=== PATIENT | female | born 1995 | race Caucasian/White ===

== ENCOUNTER 2025-02-01 13:02 | Emergency (ER) | payer BC, SELFPAY ==
[2025-02-01 13:10] VITALS: BP 137/85; PULSE 117; RESP 20; TEMP 36.4; O2SAT 98
[2025-02-01 13:47] VITALS: BP 153/83; PULSE 111; RESP 20; O2SAT 97
--- NOTE | 2025-02-01 14:10 | ED.GENADULT ---
HPI - General Adult General Chief complaint: Nausea/Vomiting/Diarrhea Stated complaint: OZEMPIC RELATED N/V SENT IN FOR IVF Time Seen by Provider: 02/01/25 13:51 History of Present Illness HPI narrative: 30-year-old female present to the emergency department for evaluation for increased nausea vomiting abdominal cramping and hyperglycemia. Patient is a type 1 diabetic and does insulin injections. Patient does have a Dexcom and her blood sugars are running in the 300s range. Patient had previously been on was then back but had to stop due to insurance issues, patient restarted the Ozempic on and restarted at the full dose that she had been taking. Patient reports uncontrolled nausea, patient has been taking Zofran with no significant improvement. Patient describes abdominal cramping. She states she has been positive for ketones. Related Data Allergies Allergy/AdvReac Type Severity Reaction Status Date / Time adhesive tape AdvReac Rash Verified 02/01/25 13:47 Review of Systems Review of Systems: All systems reviewed & are unremarkable except as noted in HPI and below Exam Narrative: APPEARANCE: Ill-appearing on arrival HEAD: normocephalic, atraumatic. EYES: PERRLA/EOMI, conjunctivae clear. NOSE: Normal no drainage EARS:TMS clear with good light reflex. THROAT: Pharynx clear, no exudate. NECK: Supple. No adenopathy, no masses. RESPIRATORY: Airway patent, respirations nonlabored. Clear to auscultation bilaterally, no rales, rhonchi, wheezing. CARDIOVASCULAR: Regular rate and rhythm without murmurs rubs or gallops. ABDOMINAL: Soft, nontender, nondistended, normal bowel sounds MUSCULOSKELETAL: Moves all extremities. Strength/ROM intact, No edema, No calf tenderness. NEURO: Alert. Cranial nerves II through XII intact. Good gait. Good coordination SKIN: Warm, dry. Normal Color Course Vital Signs Vital signs: Vital Signs Temperature 97.6 F 02/01/25 13:10 Pulse Rate 117 H 02/01/25 13:10 Respiratory Rate 20 02/01/25 13:10 Blood Pressure 137/85 02/01/25 13:10 Pulse Oximetry 98 02/01/25 13:10 Oxygen Delivery Room Air 02/01/25 13:10 Temperature 97.6 F 02/01/25 13:10 Pulse Rate 95 02/01/25 17:30 Respiratory Rate 18 08/09/25 17:30 Blood Pressure 134/74 02/01/25 17:30 Pulse Oximetry 100 02/01/25 17:30 Oxygen Delivery Room Air 02/01/25 13:47 Medical Decision Making MDM Narrative Medical decision making narrative: 30-year-old female history of type 1 diabetes presenting the emergency department for evaluation for nausea vomiting. Patient is afebrile but does have a leukocytosis 17.9 hemoglobin 15.4. Patient's initial anion gap was 16 improved to 11 with IV rehydration. Patient's initial beta hydroxybutyrate was 2.31 and this improved to 1.06 after 2.7 L of lactated Ringer's and 4 units of IV insulin. Patient is now tolerating p.o.. Patient's urine was positive for ketones but negative for underlying urinary tract infection. On re-evaluation patient states she does feel significantly improved patient does appear to be clinically improved. Patient was offered admission for improving DKA. Patient strongly prefers to be discharged home. Patient does have Zofran at home and she will be provided additional Reglan. Patient was treated with IV Reglan emergency department and this did seem to help her symptoms. Patient was advised to stick with a clear liquid diet for the next few days. Patient family were also educated on the importance of return to the emergency department if the patient has any worsening symptoms. Patient will have close follow-up with her primary care physician. All questions concerns were addressed. Critical Care Procedure Note Authorized and Performed by: Farhad Almanza Total critical care time: Approximately 36 minutes Due to a high probability of clinically significant, life threatening deterioration, the patient required my highest level of preparedness to intervene emergently and I personally spent this critical care time directly and personally managing the patient. This critical care time included obtaining a history; examining the patient; pulse oximetry; ordering and review of studies; arranging urgent treatment with development of a management plan; evaluation of patient's response to treatment; frequent reassessment; and, discussions with other providers. This critical care time was performed to assess and manage the high probability of imminent, life-threatening deterioration that could result in multi-organ failure. It was exclusive of separately billable procedures and treating other patients and teaching time. Please see MDM section and the rest of the note for further information on patient assessment and treatment. Differential Diagnosis Differential Diagnosis: Adverse medication reaction, gastroenteritis, gastroparesis, DKA Vital Signs Vital Signs: Vital Signs Temperature 97.6 F 02/01/25 13:10 Pulse Rate 117 H 02/01/25 13:10 Respiratory Rate 20 02/01/25 13:10 Blood Pressure 137/85 02/01/25 13:10 Pulse Oximetry 98 02/01/25 13:10 Oxygen Delivery Room Air 02/01/25 13:10 Temperature 97.6 F 02/01/25 13:10 Pulse Rate 95 02/01/25 17:30 Respiratory Rate 18 02/01/25 17:30 Blood Pressure 134/74 02/01/25 17:30 Pulse Oximetry 100 02/01/25 17:30 Oxygen Delivery Room Air 02/01/25 13:47 Lab Data Lab results reviewed: Yes I reviewed the patient's lab results. 02/01/25 14:24 02/01/25 16:34 Labs: Lab Results 02/01/25 02/01/25 02/01/25 Range/Units 14:24 14:25 14:28 WBC 17.9 H (4.5-10.0) K/mm3 RBC 5.19 (4.2-5.4) M/mm3 Hgb 15.4 H (12.0-15.0) g/dL Hct 45.4 (37.0-47.0) % MCV 87.5 (80-100) fl MCH 29.7 (26-34) pg MCHC 33.9 (32-36) g/dl RDW 12.7 (11.5-14.5) % Plt Count 338 (150-375) k/mm3 MPV 10.0 (7.4-10.4) fl Immature Gran % (Auto) 0.6 H (0-0.5) % Neut % (Auto) 88.1 H (45.5-73.1) % Lymph % (Auto) 6.9 L (18.3-44.2) % [place] % (Auto) 4.1 (2.6-8.5) % Eos % (Auto) 0.1 (0-4.4) % Baso % (Auto) 0.2 (0.2-1.2) % Lymph # (Auto) 1.24 (0.9-3.2) K/mm3 [place] # (Auto) 0.7 H (0.1-0.6) K/mm3 Eos # (Auto) 0.0 (0-0.3) K/mm3 Baso # (Auto) 0.0 (0.0-0.1) K/mm3 Abs Immat Gran (auto) 0.10 H (0.00-0.031) K/mm3 Absolute Neuts (auto) 15.8 H (1.3-6.7) K/mm3 Absolute Nucleated RBC 0.000 (0.0-0.012) K/mm3 Nucleated RBC % 0.0 (0.0-0.2) % Sodium 136 L (137-145) mmol/L Potassium 4.4 (3.4-5.0) mmol/L Chloride 102 (98-107) mmol/L Carbon Dioxide 18 L (22-30) mmol/L Anion Gap 16 H (4-12) mmol/L BUN 16 (7-17) mg/dL Creatinine 0.77 (0.7-1.0) mg/dL Estim Creat Clear Calc 92 ml/min Estimated GFR > 60 (59 - ) Glucose 272 H (65-110) mg/dL POC Capillary Glucose (65-105) mg/dl Lactic Acid 1.5 (0.7-2.0) mmol/L Calcium 9.8 (8.4-10.2) mg/dL Total Bilirubin 1.2 (0.2-1.3) mg/dL AST 30 (14-36) U/L ALT 28 (6-35) U/L Alkaline Phosphatase 90 (38-126) U/L Total Protein 9.6 H (6.3-8.2) g/dL Albumin 5.0 (3.5-5.1) g/dL Beta-Hydroxybutyrate/Acetoacetate 2.31 H (0.02-0.27) mmol/L Urine Color Yellow (Yellow) Urine Appearance Clear (Clear) Urine pH 5.5 (5.0-9.0) Ur Specific [place] 1.035 (1.001-1.035) Urine Protein 1+ H (Negative) mg/dL Urine Glucose (UA) 3+ H (Negative) mg/dL Urine Ketones 4+ H (Negative) mg/dL Ur Blood (Man) Negative (Negative) Urine Nitrate Negative (Negative) Urine Bilirubin Negative (Negative) Urine Urobilinogen 0.2 (<2.0) mg/dL Add Ur Microanalysis Reviewed Leukocyte Esterase Rfl Negative (Negative) ANDRIA/UL Urine RBC 0-2 (0-2) /hpf Urine WBC 0-5 (0-3) /hpf Ur Squamous Epith Cells None seen (Few) /hpf Urine Bacteria None seen /hpf Urine Casts 6-10 POC Urine HCG, Qual Negative (Negative) 02/01/25 02/01/25 Range/Units 16:11 16:34 WBC (4.5-10.0) K/mm3 RBC (4.2-5.4) M/mm3 Hgb (12.0-15.0) g/dL Hct (37.0-47.0) % MCV (80-100) fl MCH (26-34) pg MCHC (32-36) g/dl RDW (11.5-14.5) % Plt Count (150-375) k/mm3 MPV (7.4-10.4) fl Immature Gran % (Auto) (0-0.5) % Neut % (Auto) (45.5-73.1) % Lymph % (Auto) (18.3-44.2) % [place] % (Auto) (2.6-8.5) % Eos % (Auto) (0-4.4) % Baso % (Auto) (0.2-1.2) % Lymph # (Auto) (0.9-3.2) K/mm3 [place] # (Auto) (0.1-0.6) K/mm3 Eos # (Auto) (0-0.3) K/mm3 Baso # (Auto) (0.0-0.1) K/mm3 Abs Immat Gran (auto) (0.00-0.031) K/mm3 Absolute Neuts (auto) (1.3-6.7) K/mm3 Absolute Nucleated RBC (0.0-0.012) K/mm3 Nucleated RBC % (0.0-0.2) % Sodium 135 L (137-145) mmol/L Potassium 4.1 (3.4-5.0) mmol/L Chloride 103 (98-107) mmol/L Carbon Dioxide 21 L (22-30) mmol/L Anion Gap 11 (4-12) mmol/L BUN 14 (7-17) mg/dL Creatinine 0.75 (0.7-1.0) mg/dL Estim Creat Clear Calc 94 ml/min Estimated GFR > 60 (59 - ) Glucose 204 H (65-110) mg/dL POC Capillary Glucose 189 H (65-105) mg/dl Lactic Acid (0.7-2.0) mmol/L Calcium 9.3 (8.4-10.2) mg/dL Total Bilirubin (0.2-1.3) mg/dL AST (14-36) U/L ALT (6-35) U/L Alkaline Phosphatase (38-126) U/L Total Protein (6.3-8.2) g/dL Albumin (3.5-5.1) g/dL Beta-Hydroxybutyrate/Acetoacetate 1.06 H (0.02-0.27) mmol/L Urine Color (Yellow) Urine Appearance (Clear) Urine pH (5.0-9.0) Ur Specific [place] (1.001-1.035) Urine Protein (Negative) mg/dL Urine Glucose (UA) (Negative) mg/dL Urine Ketones (Negative) mg/dL Ur Blood (Man) (Negative) Urine Nitrate (Negative) Urine Bilirubin (Negative) Urine Urobilinogen (<2.0) mg/dL Add Ur Microanalysis Leukocyte Esterase Rfl (Negative) ANDRIA/UL Urine RBC (0-2) /hpf Urine WBC (0-3) /hpf Ur Squamous Epith Cells (Few) /hpf Urine Bacteria /hpf Urine Casts POC Urine HCG, Qual (Negative) Critical Care Time Critical Care Time Critical Care Time: Yes Total Critical Care Time: 36 Discharge Plan Discharge Clinical Impression: Nausea & vomiting, Adverse drug reaction Patient Disposition: Home Condition: Stable Instructions: Antibiotic Form, Clear Liquid Diet (ED), Acute Nausea and Vomiting (ED) Additional Instructions: You were offered admission for further treatment of your possible DKA and you preferred to be discharged home. I do recommend Zofran for nausea control and Reglan for additional nausea control. Follow a clear liquid diet for the next few days until nausea and vomiting resolves. Have close follow-up with your primary care physician. If you have any worsening symptoms then please call or return to the emergency department. Patient Language: Kenyan Prescriptions: New metoclopramide HCl [Reglan] 10 mg tablet 10 mg PO Q6H PRN (Reason: nausea and vomiting) Qty: 14 0RF Follow-up/Referrals: Jarett,Lavon Eubanks MD [Primary Care Provider] -
--- OUTSIDE RECORDS SUMMARY | 2025-02-01 14:18 | XMS_ITS | Clinical Summary ---
Author Organization [facility] Address [address] [place] [address] Care Team Providers Care Tetryl Boiling Tub Operator Name Role Phone Julio Ferreira Primary Care Provider [phone] Allergies Active Allergy Reactions Criticality Noted Date Comments Adhesive Itching,Rash,Redness Medium 02/10/2021 Medications glucagon HCL (Glucagon, HCl, Emergency Kit) 1 mg recon soln Inject 1 pen as directed as directed Only if bs drops to low 1 each 1 0 Active ibuprofen (ADVIL,MOTRIN) 800 mg tablet Take 1 tablet (800 mg total) by mouth 3 (three) times a day as needed for pain (pain) 270 tablet 1 0 Active insulin lispro (HumaLOG, ADMELOG) 100 unit/mL pen for injection INJECT UP TO 60 UNITS UNDER THE SKIN DAILY, OR 2 UNITS PER 15 CARBS, 6 UNITS/MEALS, Normal 135 mL 4 3 Active blood-glucose sensor (Dexcom G6 Sensor) deviceIndications:T ype 1 diabetes mellitus without complication (HCC) Use 1 every 10 days 9 each 3 3 Active blood-glucose transmitter (Dexcom G6 Transmitter) deviceIndications:T ype 1 diabetes mellitus without complication (HCC) Use 1 every 90 days 1 each 3 3 Active semaglutide (OZEMPIC) 2 mg/dose (8 mg/3 mL) pen injector injection Inject 2 mg under the skin every 7 days 3 mL 3 Active ondansetron ODT (ZOFRAN-ODT) 4 mg disintegrating tabletIndications:N ausea Take 1 tablet (4 mg total) by mouth every 8 (eight) hours as needed for nausea or vomiting 20 tablet 1 3 Active LORazepam (ATIVAN) 0.5 mg tabletIndications:A nxiety Take 1 tablet (0.5 mg total) by mouth 2 (two) times a day as needed for anxiety 30 tablet 3 Active insulin glargine (TOUJEO) 300 unit/mL (1.5 mL) pen for injection Inject 30 Units under the skin nightly 15 mL 1 3 Active Active Problems Problem Noted Date Diagnosed Date Anxiety 05/22/2023 Assessment & Plan (05/22/2023 10:44 PM CAUSTIC LIQUOR MAKER): Chronic Stable and well controlled Continue lorazepam prn 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 -she has had really good improvement with the recommendations. Will continue with soluble fiber supplementation daily. -when in initiate therapy with omeprazole 20 mg daily. -will continue with Levsin on a p.r.n. basis. -no further episodes of rectal bleeding. Will continue monitor. -also recommend, -ROOM TEMPERATURE BEVERAGES. -Maintain good hydration. With approximately 64 oz of water a day -AVOID RAW VEGETABLES. EAT COOKED VEGETABLES. -drink coconut water as one of the preferred beverages. -consider use of yogurt, which is a good probiotic. -consider use of honey with lemon, pati if possible. -Use benefibre, or fibrecon if methylcellulose not available or cannot be tolerated. -MINDFULLNESS WITH 20MIN FOR TWICE A DAY. -30 minutes of low intensity walking every day. -discussed intermittent fasting Assessment & Plan (04/26/2021 10:22 AM CDT): -a diagnosis of irritable bowel syndrome with diarrhea?+ blood in stool + abdominal pain -however IBS is a diagnosis of exclusion. She has not had previous stool studies. Will do stool studies including fecal leukocytes, ova and parasite and stool culture, fecal calprotectin for further evaluation. Will also obtain ESR CRP and CBC. Note that her CMP, TSH are within normal limits. She has also been tested for celiac and that was noted to be negative. -will also schedule her for a colonoscopy for further evaluation with ileal intubation. -also recommend, -ROOM TEMPERATURE BEVERAGES. -Maintain good hydration. With approximately 64 oz of water a day -AVOID RAW VEGETABLES. EAT COOKED VEGETABLES. -drink coconut water as one of the preferred beverages. -consider use of yogurt, which is a good probiotic. -consider use of honey with lemon, pati if possible. -Use benefibre, or fibrecon if methylcellulose not available or cannot be tolerated. -MINDFULLNESS WITH 20MIN FOR TWICE A DAY. -30 minutes of low intensity walking every day. -discussed intermittent fasting Blood in stool 04/26/2021 Overview (04/26/2021): Added automatically from request for surgery [id number] Abdominal cramping 04/26/2021 Assessment & Plan (04/26/2021 10:23 AM CDT): -longstanding symptom. Will give Levsin to be used on a regular basis and then p.r.n. for abdominal pain -will schedule for an upper endoscopy further evaluation Mixed hyperlipidemia 01/13/2020 Overview (01/13/2020): TC and LDL have been too high. I will recheck, consider a statin. Type 1 diabetes mellitus without complication Assessment & Plan (05/22/2023 10:43 PM CAUSTIC LIQUOR MAKER): Chronic stable and improving but not at goal Continue ozempic Monitor constipation nausea and abdominal pain Monitor for hypoglycemic events. Continue current insulin regimen Assessment & Plan (06/30/2020 6:43 PM CAUSTIC LIQUOR MAKER): Glucose control is improving greatly!! Overall, much more stable pattern. You are doing a great job covering meals during the day. It is not clear why your nighttime glucoses are so variable, and often so high. Rather than increasing insulin doses, I strongly recommend that you focus on getting more steps in and moving around more in the evening after dinner. Avoid eating after dinner. Continue use of Dexcom G6 and MDI. Assessment & Plan (01/13/2020 10:32 AM CDT): Glucose control appears to be problematic, significant hyperglycemia and glucose fluctuation, which is typical of over-eating and poorly planned eating. My recommendations are: - Continue use of Dexcom G6, try to be more consistent with use if possible - Continue current insulin doses, but add carbs/correction for heavy meals, snacks - Check A1c - Substitute Ozempic for Victoza Assessment & Plan (07/22/2019 8:58 PM CAUSTIC LIQUOR MAKER): Diabetes control is improving. Target A1c is <7.0%. She has benefited from addition of dexcom G6. Has already lost some weight with initiation on Victoza. Subjective symptoms of hypoglycemia not reflective of sensor readings which did not identify any lows. - increase Victoza to 1.8mg weekly - encouraged patient to self down-titrate insulin in case of low BGs Assessment & Plan (01/30/2018 9:46 PM CDT): Diabetes control is improving with A1c of 7.6%. Target A1c is <7.0%. She has benefited from addition of dexcom G5 and is excited to transition to G6 with little to no fingersticks. She is having hyperglycemia overnight when she eats a late dinner and has moved dinner to earlier this last week, resulting in much less overnight hyperglycemia. She is also watching her diet and eating low carb meals. Continue current insulin doses. We discussed giving 2-3 units of insulin for very low carb meals. Will also start victoza and uptitrate to 1.8 mg daily depending on GI tolerance. Obesity due to excess calories with serious mike rbidity 01/30/2018 Assessment & Plan (06/30/2020 6:45 PM CAUSTIC LIQUOR MAKER): Obesity at this age is concerning. Keep working on lower calories and more exercise. Find the groove where you are losing 1 - 2# per week. If unable to maintain this, I am happy to consider bariatric surgery referral. This is a potential lifetime problem. Assessment & Plan (01/13/2020 10:34 AM CDT): Please focus efforts on the following: - Get 8 hours of sleep nightly - Manage stress - Planned food intake, count calories, plan meals, etc - Add exercise, starting low and working up. Assessment & Plan (01/30/2018 9:39 PM CDT): Obesity is worsening with several pound weight gain since last visit. Encouraged her to continue with exercise and diet modification with portion control. Benign hypertension 01/30/2018 Assessment & Plan (01/13/2020 10:34 AM CDT): Your reported BP is OK, please keep checking and let me know if you see values >130/80. Assessment & Plan (01/30/2018 9:47 PM CDT): BP improved this visit. Will continue to monitor. Vitamin D deficiency 08/16/2017 Resolved Problems Problem Noted Date Diagnosed Date Resolved Date Type 1 diabetes mellitus with hyperglycemia 09/01/2015 08/20/2019 Immunizations Immunization Administration Dates Next Due Influenza, Unspecified 02/25/2020(Deferred: Gloria ent decision) TaDaweb (J&J) SARS-CoV-2 Vaccination 09/01/2020 Surgical History Surgery Date Site/Laterality Comments TONSILLECTOMY Tonsillectomy - 2000 (Added by TW Conv) COLONOSCOPY 05/06/2021 IBS UPPER GASTROINTESTINAL ENDOSCOPY 05/06/2021 Medical History Medical History Date Comments Personal history of urinary infection History of urinary tract infection - (Added by TW Conv) Type 1 diabetes (HCC) Hypertension Obesity Family History Medical History Relation Name Comments Hypertension Father Hypertension - (Added by TW Conv) Heart disease Maternal Grandfather Heart Disease - Relation: Grandfather (Added by TW Conv) Hypertension Mother Hypertension - (Added by TW Conv) Diabetes type II Other 1 Type 2 Diab etes Mellitus - (Added by TW Conv) Cancer Other 2 Cancer - Relati on: Grandmother (Added by TW Conv) Breast cancer Neg Hx Ovarian cancer Neg Hx Relation Name Status Comments Father Maternal Grandfather Mother Other 1 Other 2 Social History Tobacco Use Types Packs/Day Years Used Date Smoking Tobacco: Never Smokeless Tobacco: Never Tobacco Cessation:Counseling Given: Not Answered Alcohol Use Standard Drinks/Week Comments Not Currently 0 (1 standard drink = 0.6 oz pur e alcohol) AUDIT-C Answer Date Recorded Q1: How often do you have a drink containing alcohol? Never 05/16/2023 Q2: How many drinks containi ng alcohol do you have on a typical day when you are drinking? Patient does not drink Q3: How often do you have si x or more drinks on one occasion? Never 05/16/2023 PHQ-2 Answer Date Recorded PHQ-2 Total Score (If total score is 3 or more points, staff should administer the PHQ-9) 0 06/02/2021 Personal Safety Answer Date Recorded Getting School Help Needed Not on file 06/07 Comments No Sex and Gender Information Value Date Recorded Sex Assigned at Not on file Legal Sex Female 10:50 PM CAUSTIC LIQUOR MAKER Gender Identity Not on file Sexual Orientation Straight 01/12/2020 7: 12 AM CDT Obstetrics History Para Term AB IAB SAB Ectopic Multiple Livin g Live Births 0 0 0 0 0 0 0 0 0 0 0 Last Filed Vital Signs Vital Sign Reading Time Taken Comments Blood Pressure 106/70 05/16/2023 3:24 PM CAUSTIC LIQUOR MAKER Pulse 88 05/16/2023 3:24 PM CAUSTIC LIQUOR MAKER Temperature 36.1 C (96.9 F) 05/16/2023 3:24 PM CAUSTIC LIQUOR MAKER Respiratory Rate 18 05/16/2023 3:24 PM CAUSTIC LIQUOR MAKER Oxygen Saturation 98% 05/16/2023 3:24 PM CAUSTIC LIQUOR MAKER Inhaled Oxygen Concentration - - Weight 78.7 kg (173 lb 9.6 oz) 05/16/2023 3:24 P M CAUSTIC LIQUOR MAKER Height 152.4 cm (5') 05/16/2023 3:24 PM CAUSTIC LIQUOR MAKER Body Mass Index 33.9 05/16/2023 3:24 PM CAUSTIC LIQUOR MAKER Plan of Treatment Health Maintenance Due Date Last Done Comments Cervical Cancer Screening 1994 Foot Exam 1994 Hepatitis C Screening 1994 DTaP/Tdap/Td Vaccine (1 - Tdap) 2005 Hepatitis B Screening 01/19/2012 Pneumococcal vaccine <65 (1 of 2 - PCV) 2013 Albumin Creatinine Ratio, Urine 07/22/2020 0 TSH Level 07/22/2020 07/22/2019, 08/11/2017 HPV Vaccines (1 - 3-dose SCD M series) 2021 Lipid Panel 01/23/2021 01/24/2020, 06/27, 08/11/2017 eGFR 01/23/2021 01/24/2020 Regular Well Visit/Exam 18-64 07/09/2021 07/09/2020 Depression Screening 06/02/2022 06/02/2021, 04/26/2021, 09/07/2020 Hemoglobin A1C 06/03/2023 12/02/2022, 10/2020, 01/24/2020, Additional history exists Covid-19 Vaccine (3 - 2023-2 5 season) 2024 07/09/2021, 09/01/2020 Dilated Eye Exam 04/06/2024 04/06/2023, 10/12/2021 Influenza Vaccine (#1) 2025 Varicella Vaccines Discontinued Procedures Procedure Name Priority Date/Time Associated Diagnosis Comments DIABETIC EYE EXAM Routine 04/06/2023 HEMOGLOBIN A1C Routine 12/02/2022 7:02 AM CDT Type 1 diabetes mellitus without complication (HCC) COMPREHENSIVE METABOLIC PANEL Routine 01/24/2020 3:04 PM CDT Type 1 diabetes mellitus without complication (HCC) LIPID PANEL Routine 01/24/2020 3:04 PM CDT Type 1 diabetes mellitus without complication (HCC) ALBUMIN CREATININE RATIO, URINE Routine 07/22/2019 11:36 AM CAUSTIC LIQUOR MAKER Type 1 diabetes mellitus without complication (HCC) TSH Routine 07/22/2019 11:36 AM CAUSTIC LIQUOR MAKER Type 1 diabetes mellitus without complication (HCC) from Last 3 Months or Most Recently Relevant to Health Maintenance Results * Diabetic Eye Exam (04/06/2023) Historical Provider MD HEALTH MAINTENANCE Final Result * (ABNORMAL) Hemoglobin A1c (12/02/2022 7:02 AM CDT) Hgb A1C 7.9(H) <5.7 % of total Hgb [facility] Comment: For someone without known diabetes, a hemoglobin A1c value of 6.5% or greater indicates that they may have diabetes and this should be confirmed with a follow-up test. For someone with known diabetes, a value <7% indicates that their diabetes is well controlled and a value greater than or equal to 7% indicates suboptimal control. A1c targets should be individualized based on duration of diabetes, age, comorbid conditions, and other considerations. Currently, no consensus exists regarding use of hemoglobin A1c for diagnosis of diabetes for children. Blood 12/02/2022 7:02 AM CDT 12/02/2022 7:03 AM CDT Brooklyn MCGINNIS LAB BLOOD ORDERABLES Fi nal Result [facility] [address] [place] [address] * (ABNORMAL) Lipid panel (01/24/2020 3:04 PM CDT) Cholesterol 189 100 - 199 mg/dL [facility] 01 Triglycerides 166(H) 0 - 149 mg/dL [facility] - 01 HDL Cholesterol 43 >39 mg/dL [facility] 01 VLDL 33 5 - 40 mg/dL [facility] - 01 LDL, calculated 113(H) 0 - 99 mg/dL [facility] - 01 Blood specimen (specimen) 01/24/2020 3:04 PM CDT 01/24/2020 Narrative [facility] - 01/25/2020 7:08 AM CDT Performed at: [address] [place] [id number] Screen Print[employer] Stencil Preparer: Brent Moon PhD, Phone: [phone] us Nadege Pendleton MD LAB BLOOD ORDERABLES Final Re sult [facility] * (ABNORMAL) Comprehensive metabolic panel (01/24/2020 3:04 PM CDT) Pathologist [facility] [place] Glucose 114(H) 65 - 99 mg/dL [facility] - 01 BUN 10 6 - 20 mg/dL [facility] - 01 Creatinine, Serum 0.92 0.57 - 1.00 mg/dL [facility] - 01 eGFR If NonAfricn Am 86 >59 mL/min/1.7 3 [facility] - 01 eGFR If Africn Am 99 >59 mL/min/1.7 3 [facility] - 01 BUN/creat ratio 11 9 - 23 [facility] - 01 Sodium 140 134 - 144 mmol/L [facility] - 01 Potassium, sr 4.7 3.5 - 5.2 mmol/L [facility] - 01 Chloride 100 96 - 106 mmol/L [facility] - 01 CO2 26 20 - 29 mmol/L [facility] - 01 Calcium 9.9 8.7 - 10.2 mg/dL [facility] - 01 Protein, sr 7.9 6.0 - 8.5 g/dL [facility] - 01 Albumin 4.6 3.9 - 5.0 g/dL [facility] - 01 Globulin, Total 3.3 1.5 - 4.5 g/dL [facility] - 01 A/G Ratio 1.4 1.2 - 2.2 [facility] - 01 Bilirubin, Total 0.3 0.0 - 1.2 mg/dL [facility] - 01 Alk phos 100 39 - 117 IU/L [facility] - 01 AST 16 0 - 40 IU/L [facility] - 01 ALT 15 0 - 32 IU/L [facility] - 01 Blood specimen (specimen) 01/24/2020 3:04 PM CDT 01/24/2020 Narrative [facility] - 01/25/2020 7:08 AM CDT Performed at: [address] [id number] Screen Print[employer] Stencil Preparer: Brent Moon PhD, Phone: [phone] Nadege Pendleton MD LAB BLOOD ORDERABLES Final Re sult Performing Organization Address [facility] de Phone Number [facility] - 01 * Albumin Creatinine Ratio, Urine (07/22/2019 11:36 AM CAUSTIC LIQUOR MAKER) Microalb, Ur <7.0 0.0 - 22.9 mg/L [facility] Comment:Repeated and Verifie d Random Urine Creatinine 129.2 mg/dL [facility] Microalb/Creat Ratio <5.4 0.0 - 29.9 mg/g [facility] Urine 07/22/2019 11:3 6 AM CAUSTIC LIQUOR MAKER 07/22/2019 12:10 PM CAUSTIC LIQUOR MAKER Nadege Pendleton MD LAB URINE ORDERABLES Final Re sult Performing Organization Address [facility] de Phone Number [facility] * TSH (07/22/2019 11:36 AM CAUSTIC LIQUOR MAKER) TSH (Thyrotropin) 1.89 0.27 - 4.20 uIU/mL [facility] Blood specimen (specimen) 07/22/2019 11:36 AM CAUSTIC LIQUOR MAKER 07/22/2019 12:10 PM CAUSTIC LIQUOR MAKER Nadege Pendleton MD LAB BLOOD ORDERABLES Final Re sult Performing Organization Address [facility] Co de Phone Number [facility] from Last 3 Months or Most Recently Relevant to Health Maintenance Insurance [employer] Address: [address] [place] [address] [employer] OPEN ACCESS [employer] OPEN ACCESS [employer] Care Teams Tetryl Boiling Tub Operator Relationship Specialty Start Date End Date Julio Ferreira PA [address] [facility] [address] [phone] PCP - General Family Medicine 03/15/23
--- OUTSIDE RECORDS SUMMARY | 2025-02-01 14:18 | XMS_ITS | Encounter Summary ---
Author Organization [facility] Facility Care Team Providers Care Salvage Engineering Technician Name Role Phone Lavon Denson MD Primary Care Provider [phone] Brooklyn Foley Primary Care Provider Julio Ferreira Primary Care Provider [phone] Encounter Details Date Type Department Care Team (Latest Contact Info) Description 09/01/2015 Orders Only [facility] ProviderHector MD [address] [place] [id number] Social History Tobacco Use Types Packs/Day Years Used Date Smoking Tobacco: Never Comments Unknown Sex and Gender Information Value Date Recorded Sex Assigned at Not on file Legal Sex Female 10:50 PM INSURANCE CODER Gender Identity Not on file Sexual Orientation Straight 01/12/2020 7: 12 AM CDT documented as of this encounter Plan of Treatment Not on file documented as of this encounter Procedures Procedure Name Priority Date/Time Associated Diagnosis Comments SCAN - LABS 09/01/2015 12:00 AM INSURANCE CODER documented in this encounter Results * SCAN - LABS (09/01/2015 12:00 AM INSURANCE CODER) Narrative 09/01/2015 12:00 AM INSURANCE CODER Ordered by an unspecified provider. Historical Provider Final Res ult documented in this encounter Visit Diagnoses Not on filedocumented in this encounter Care Teams Salvage Engineering Technician Relationship Specialty Start Date End Date Lavon Denson MD PCP - General 07/17/17 04/11/22 Brooklyn Foley PA PCP - General Family Medicine 04/12/22 03/14/23 Julio Ferreira PA [address] [facility] [address] [place] [address] [place] [id number] PCP - General Family Medicine 03/15/23 documented as of this encounter
[2025-02-01] MEDS: METOCLOPRAMIDE HCL INJ 10 MG/2 ML VIAL IV PUSH (14:26)
[2025-02-01] MEDS: PANTOPRAZOLE SODIUM IV 40 MG VIAL IV PUSH (14:26)
[2025-02-01] MEDS: LACTATED RINGERS 1,000 ML 999 ML IV CONT ×2 (14:27→14:41)
[2025-02-01 14:30] LABS: BEDSIDEPREGUCG Negative (Negative)
[2025-02-01 14:35] LABS: Hematocrit 45.4 % (37.0-47.0); Hemoglobin 15.4 g/dL (12.0-15.0); Immature Granulocyte Percent A 0.6 % (0-0.5); Lymphocytes Absolute Auto 1.24 K/mm3 (0.9-3.2); Mean Corpuscular HGB Conc 33.9 g/dl (32-36); Mean Corpuscular Hemoglobin 29.7 pg (26-34); Mean Corpuscular Volume 87.5 fl (80-100); Nucleated Red Blood Cells Absolute Auto 0.000 K/mm3 (0.0-0.012); Nucleated Red Blood Cells Perc 0.0 % (0.0-0.2); Platelet Count Result 338 k/mm3 (150-375); Red Blood Count 5.19 M/mm3 (4.2-5.4); White Blood Count 17.9 K/mm3 (4.5-10.0)
[2025-02-01 14:45] LABS: Alanine Aminotransferase 28 U/L (6-35); Albumin Level 5.0 g/dL (3.5-5.1); Alkaline Phosphatase 90 U/L (38-126); Anion Gap 16 mmol/L (4-12); Aspartate Amino Transferase 30 U/L (14-36); Bilirubin,Total 1.2 mg/dL (0.2-1.3); Blood Urea Nitrogen 16 mg/dL (7-17); Calcium 9.8 mg/dL (8.4-10.2); Carbon Dioxide 18 mmol/L (22-30); Chloride 102 mmol/L (98-107); Estimated CRCL calculation 92 ml/min; Estimated Glomerular Filt Rate > 60; Glucose 272 mg/dL (65-110); Potassium 4.4 mmol/L (3.4-5.0); Sodium 136 mmol/L (137-145); Total Protein 9.6 g/dL (6.3-8.2)
[2025-02-01 14:51] LABS: Beta-Hydroxybutyrate/Acetoacetate 2.31 mmol/L (0.02-0.27)
[2025-02-01 14:52] LABS: Add Urine Microscopic? YES; Appearance Urine Clear (Clear); Glucose Urine UA 3+ mg/dL (Negative); Leukocyte Esterase Ur Negative LEU/UL (Negative); Need Manual Microscopic Reviewed; Nitrate Urine Negative (Negative); Specific Grav Ur 1.035 (1.001-1.035)
[2025-02-01 15:00] VITALS: BP 133/71; PULSE 91; RESP 20; O2SAT 99
[2025-02-01] MEDS: LACTATED RINGERS 700 ML 999 ML IV CONT (15:01)
[2025-02-01] MEDS: INSULIN HUMAN REGULAR (*BKC) 100 UNITS/ML IV PUSH (15:22)
[2025-02-01 16:52] LABS: Anion Gap 11 mmol/L (4-12); Blood Urea Nitrogen 14 mg/dL (7-17); Calcium 9.3 mg/dL (8.4-10.2); Carbon Dioxide 21 mmol/L (22-30); Chloride 103 mmol/L (98-107); Estimated CRCL calculation 94 ml/min; Estimated Glomerular Filt Rate > 60; Glucose 204 mg/dL (65-110); Potassium 4.1 mmol/L (3.4-5.0); Sodium 135 mmol/L (137-145)
[2025-02-01 16:59] LABS: Beta-Hydroxybutyrate/Acetoacetate 1.06 mmol/L (0.02-0.27)
[2025-02-01] MEDS: ACETAMINOPHEN 500 MG TABLET 1000 MG PO (17:21)
[2025-02-01 17:30] VITALS: BP 134/74; PULSE 95; RESP 18; O2SAT 100
== END 2025-02-01 17:32 | disposition home or self-care (01) ==
PROVIDERS: Emergency Provider Emergency Medicine; PCP Family Medicine
DX: R11.2 Nausea with vomiting, unspecified (principal); T38.3X5A Adverse effect of insulin and oral hypoglycemic [antidiabetic] drugs, initial encounter; E10.65 Type 1 diabetes mellitus with hyperglycemia; Z79.4 Long term (current) use of insulin
CPT/HCPCS: 36415; 80048; 80053; 81001; 81025; 82010; 82948; 83605; 85025; 96361; 96374; 96375; 99284; A9270; J1815; J2470; J2765; J7120